=== PATIENT | male | born 1945 | race Caucasian/White ===

== ENCOUNTER 2017-05-13 10:19 | Outpatient (CLI) | payer MEDICARE | END 2017-05-13 10:20 | disposition home or self-care (01) | LOC: BURLAB 10:19 | PROVIDERS: ATTEND Radiology Radiation Oncology | DX: C61 Malignant neoplasm of prostate (principal) | CPT/HCPCS: 36415; 84153 ==

== ENCOUNTER 2020-11-03 12:50 | Outpatient (CLI) | payer MEDICARE ==
--- NOTE | 2020-11-03 17:26 | CT ---
CT OF THE CHEST WITHOUT CONTRAST: 11/03/[address] of the chest was performed in this patient with prior history of neoplasm. There appears to have been a prior left pneumonectomy with attendant volume loss, as expected. The plain film appeara nce of the chest is not changed dramatically over time. This exam was done without IV contrast. The right lung is hyperexpanded but clear. No focal pulmonary masses are seen in the right lung. Ther e are no effusions. The aorta is densely calcified and coronary artery calcifications are present as well. There is no sign of pericardial effusion. There was no evidence of mediastinal mass or adenopat hy. Residual fibrotic tissue and perhaps fluid is seen on the left as would be expected. Scans into the upper part of the abdomen showed no abnormality within the limitations of this noncont rast study. Both adrenal glands were visualized and appear normal. IMPRESSION: Status post left pneumonectomy with expected residual changes. No CT evidence for recurrent disease o r acute disease. PET scanning may be more sensitive to the former if needed. POS: HOME
== END 2020-11-03 12:51 | disposition home or self-care (01) ==
LOC: BURCT 12:50
PROVIDERS: ATTEND Thoracic Surgery (Cardiothoracic Vascular Surgery)
DX: C34.12 Malignant neoplasm of upper lobe, left bronchus or lung (principal); Z90.2 Acquired absence of lung [part of]
CPT/HCPCS: 71250

== ENCOUNTER 2020-12-15 13:59 | Emergency (ER) | payer MEDICARE ==
[2020-12-15] MEDS ORDERED: Iopamidol 370 76% 100 ML VIAL IV ONE (14:00)
[2020-12-15 15:11] LABS: #Basophils 0.1 thou/uL (0.0-0.2); #Monocytes 0.6 thou/uL (0.11-0.59); #Neutrophils 11.1 thou/uL (1.40-6.50); %Basophils 0.7 % (0.0-1.0); %Eosinophils 0.2 % (0.0-10.0); %Lymphocytes 7.8 % (21.0-51.0); %Monocytes 4.4 % (0.0-10.0); %Neutrophils 86.8 % (42.0-75.0); Hemoglobin 11.1 g/dL (14.0-18.0); Mean Corpuscular HGB CONC 33.2 g/dL (32.0-36.0); Mean Corpuscular Hemoglobin 30.1 pg (27.0-31.0); Mean Corpuscular Volume 90.5 fL (78.0-98.0); Mean Platelet Volume 5.8 fL (7.4-10.4); Platelet Count 377 thou/uL (130-400); RBC Distribution Width 12.2 % (11.5-14.5); Red Blood Cell (RBC) Count 3.68 mill/uL (4.70-6.10); White Blood Cell (WBC) Count 12.7 thou/uL (4.8-10.8)
[2020-12-15 15:23] LABS: ALT (SGPT) 11 U/L (8-55); AST (SGOT) 16 U/L (5-34); Albumin 4.3 g/dL (3.4-4.8); Alkaline Phosphatase 96 U/L (40-110); Anion Gap 19 mmol/L (10-20); BUN (Urea Nitrogen) 11 mg/dL (8.4-25.7); Bilirubin, Total 0.4 mg/dL (0.2-1.2); Calc. Creatinine Clearance 0 mL/min (70-130); Calcium 9.3 mg/dL (7.8-10.44); Carbon Dioxide 25 mmol/L (23-31); Chloride 88 mmol/L (98-107); Globulin 2.7 g/dL (2.4-3.5); Glucose 105 mg/dL (83-110); Lipase 29 U/L (8-78); Sodium 128 mmol/L (136-145)
--- NOTE | 2020-12-15 17:28 | CT ---
CT ABDOMEN AND PELVIS WITH CONTRAST: 12/15/20 Comparison is made with the prior study of 10/02/20. The patient has had a prior left pneumonectomy. There are chronic changes in the left chest as the re sult. The visible right lung was hyperexpanded but showed no focal findings. The liver and spleen are normal in size. There is a vague low density area in the lower part of the r ight lobe peripherally. I doubt its current significance. Looking back at the prior study, it was pro bably present but more difficult to see due to phase of contrast administration. Again, I doubt its c urrent significance. The adrenal glands, kidneys, and gallbladder showed no acute findings. Dense art erial sclerotic change is seen in the aorta, iliac arteries and renal arteries, as well as many of th e mesenteric arteries. A few loops of small bowel and colon has some fluid in them, but the finding is not really impressive . It is actually much better than it was on the prior study. There are no thickened loops and certain ly no sign of obstruction. No free air or free fluid was detected. CT of the pelvis shows some mild concentric thickening of the urinary bladder wall. This could be due to the enlarged prostate and relative outlet obstruction, though cystitis would be in the differenti al as well. Degenerative changes are prominent in the spine as usual. IMPRESSION: Many chronic changes as noted but no definite acute findings. See note regarding urinary bladder wall . Preliminary report called to Dr. Schilling at 1556 on 12/15/20. POS: HOME
[2020-12-15 17:29] LABS: Bilirubin Negative (Negative); Blood, Urine Trace (Negative); Clarity Clear (Clear); Glucose, Urine (Dipstick) Negative (Negative); Ketone, Urine Trace mg/dL (Negative); Leukocyte Negative (Negative); Nitrite Negative (Negative); Protein, Urine (Dipstick) Negative (Neg-Trace); Urobilinogen 0.2 mg/dL (Less than 2)
[2020-12-15 17:31] LABS: Specific Gravity, Urine 1.033 (1.002-1.036)
[2020-12-15 17:34] LABS: Bacteria/HPF Rare-Few HPF (None Seen); RBC/HPF 0-3 HPF (0-3); Squamous Epithelial 0-3 HPF (0-3); WBC/HPF None Seen HPF (0-3)
== END 2020-12-15 18:17 | disposition home or self-care (01) ==
LOC: BURERS 13:59
DX: R10.30 Lower abdominal pain, unspecified (principal); R10.84 Generalized abdominal pain; E87.1 Hypo-osmolality and hyponatremia; E78.5 Hyperlipidemia, unspecified; E78.00 Pure hypercholesterolemia, unspecified; K56.609 Unspecified intestinal obstruction, unspecified as to partial versus complete obstruction; I10 Essential (primary) hypertension; Z86.718 Personal history of other venous thrombosis and embolism; Z85.46 Personal history of malignant neoplasm of prostate; Z85.118 Personal history of other malignant neoplasm of bronchus and lung; Z87.891 Personal history of nicotine dependence; Z79.82 Long term (current) use of aspirin; Z79.899 Other long term (current) drug therapy
CPT/HCPCS: 74177; 80053; 81003; 81015; 83605; 83690; 85025; Q9967

== ENCOUNTER 2022-02-03 20:35 | Emergency (ER) | payer MEDICARE | END 2022-02-03 21:10 | disposition home or self-care (01) | LOC: BURERS 20:35 | DX: R04.0 Epistaxis (principal); I10 Essential (primary) hypertension; E78.5 Hyperlipidemia, unspecified; E78.00 Pure hypercholesterolemia, unspecified; Z87.19 Personal history of other diseases of the digestive system; Z95.5 Presence of coronary angioplasty implant and graft; Z86.718 Personal history of other venous thrombosis and embolism; Z85.46 Personal history of malignant neoplasm of prostate; Z87.891 Personal history of nicotine dependence; Z85.118 Personal history of other malignant neoplasm of bronchus and lung | CPT/HCPCS: 99282 ==

== ENCOUNTER 2023-11-01 13:28 | Emergency (ER) | payer MEDICARE ==
[2023-11-01] MEDS ORDERED: Bacitracin 1 PK ONE (13:51)
== END 2023-11-01 14:14 | disposition home or self-care (01) ==
LOC: BURERS 13:28
DX: K94.23 Gastrostomy malfunction (principal); Z87.891 Personal history of nicotine dependence
CPT/HCPCS: 99284